=== PATIENT | female | born 1940 | race Caucasian/White ===

== ENCOUNTER → 2016-09-23 | Outpatient (CLI) | payer OTHER | LOC: FIMAGING 15:15 | DX: Z12.31 Encounter for screening mammogram for malignant neoplasm of breast (principal); Z80.3 Family history of malignant neoplasm of breast | CPT/HCPCS: G0202 ==

== ENCOUNTER → 2017-05-10 | Outpatient (CLI) | payer OTHER | LOC: BMCIMAGING 10:18 | PROVIDERS: ATTEND Internal Medicine | DX: Z12.39 Encounter for other screening for malignant neoplasm of breast (principal); N64.59 Other signs and symptoms in breast; Z80.3 Family history of malignant neoplasm of breast | CPT/HCPCS: 76641; G0206 ==

== ENCOUNTER 2017-07-15 14:25 | Emergency (ER) | payer OTHER ==
--- NOTE | 2017-07-15 15:22 | EDPHY ---
H & P Stated Complaint: fever, cough, body aches starting Monday - Personal History Current Tetanus/Diphtheria Vaccine: Yes Current Tetanus Diphtheria and Acellular Pertussis (TDAP): Yes Tetanus Vaccine Date: > 10 years - Medical/Surgical History Hx Asthma: No Hx Chronic Respiratory Disease: No Hx Diabetes: No Hx Cardiac Disease: Yes Hx Renal Disease: No Hx Cirrhosis: No Hx Alcoholism: No Hx HIV/AIDS: No Hx Splenectomy or Spleen Trauma: No Other PMH: HTN, gluacoma - Social History Smoking Status: Never smoked Time Seen by Provider: 07/15/17 15:15 HPI/ROS: CHIEF COMPLAINT: "I want to be checked for the flu " HISTORY OF PRESENT ILLNESS: 76-year-old immunocompetent female with up-to-date influenza vaccination complaining of 2days of flu-like symptoms including sinus congestion, headache, nonproductive cough, myalgias, fever, chills. Contacted her PCP who recommend she come to the ER for flu testing today (Monday). No abdominal pain. No nausea or vomiting. No urinary abnormality. PRIMARY CARE PROVIDER: Dr. Joaquin Bhatia REVIEW OF SYSTEMS: A ten point review of systems was performed and is negative with the exception of the items mentioned in the HPI PAST MEDICAL & SURGICAL HISTORY: Up-to-date with influenza vaccination SOCIAL HISTORY: Nonsmoker PHYSICAL EXAM (Prior to examination, patient consented to physical exam, hands were washed and my usual and customary physical exam procedures followed) 1) GENERAL: Well-developed, well-nourished, alert and oriented. Appears nontoxic. 2) HEAD: Normocephalic, atraumatic 3) HEENT: Pupils equal, round, reactive to light bilaterally. Sclera anicteric. Nasopharynx, oropharynx, clear, no lesions. No tonsillar enlargement or exudate Ears bilaterally with normal tympanic membranes. 4) NECK: Full range of motion, no meningeal signs. 5) LUNGS: Clear auscultation bilaterally, no wheezes, no rhonchi, no retractions. No accessory muscle use 6) HEART: Regular rate and rhythm, no murmur, no heave, no gallop. 7) ABDOMEN: No guarding, no rebound, no focal tenderness, negative McBurney's, negative Canela's, negative Rovsing's, negative peritoneal sign, 8) MUSCULOSKELETAL: Moving all extremities, no focal areas of tenderness, no obvious trauma. No peripheral edema or discoloration. 9) BACK: No CVA tenderness, no midline vertebral tenderness, no fluctuance, no step-off, no obvious trauma, no visual or palpable abnormality. 10) SKIN: No rash, no petechiae. 11) Psychiatric: Patient is oriented X 3, there is no agitation. DIFFERENTIAL DIAGNOSIS: In no particular include but limited to pneumonia, influenza, bronchitis (Ruben,D Yesica) Constitutional: Initial Vital Signs Temperature (C) 37.4 C 07/15/17 14:30 Heart Rate 78 07/15/17 14:30 Respiratory Rate 20 07/15/17 14:30 Blood Pressure 149/61 H 07/15/17 14:30 O2 Sat (%) 93 07/15/17 14:30 O2 Delivery Mode Room Air Allergies/Adverse Reactions: codeine [Codeine] Allergy (Mild, Verified 07/15/17 14:27) Home Medications: Medication Instructions Recorded ASPIRIN 07/15/17 Alphagan 0.2% 07/15/17 LEVOTHYROXINE SODIUM 07/15/17 LORAZEPAM 07/15/17 Lumigan 0.01% (*) 07/15/17 Metoprolol Tartrate 07/15/17 Micardis 07/15/17 Omeprazole 07/15/17 Oseltamivir Phosphate [Tamiflu] 75 mg PO BIDMEAL 5 Days cap 07/15/17 Quetiapine Fumarate 07/15/17 Ranitidine HCl 07/15/17 Medical Decision Making ED Course/Re-evaluation: 3:21 p.m.: Patient would like to be tested for the flu which will be obtained. Care of patient under supervision of secondary supervising physician Dr Gama Tiwari. 3:24 p.m.: Patient had a influenza nasal swab obtained would like to go home, does not want to wait for results, would like to be called with the results. I am sending her home with a prescription for Tamiflu however recommend she wait until test results. Patient's , Pedro Larry, was given Tamiflu prophylactic dosing and also recommended he wait on results. 4:30 p.m.: Patient's influenza testing is negative. Her nurse has contacted the patient regarding this and also regarding her 's prophylactic Tamiflu which is prescribed previously. (Ro Miranda) I did not see this patient while she was in the emergency department. However her care was discussed with the PA while the patient was in the department. I agree with treatment plan and management (Gama Tiwari) - Data Points Laboratory Results: 07/15/17 15:27 Nasal Influenza A PCR NEGATIVE FOR FLU A (NEGATIVE) Nasal Influenza B PCR NEGATIVE FOR FLU B (NEGATIVE) Departure - Departure Disposition: Home, Routine, Self-Care Clinical Impression: Influenza Condition: Good Instructions: Influenza (ED) Referrals: Joaquin Bhatia MD [Primary Care Provider] - As per Instructions Prescriptions: Oseltamivir Phosphate [Tamiflu] 75 mg PO BIDMEAL 5 Days cap
[2017-07-15 15:38] VITALS: BP 143/72; PULSE 72; RESP 18; TEMP 99.1; O2SAT 95
== END 2017-07-15 15:55 | disposition home or self-care (01) ==
DX: J11.1 Influenza due to unidentified influenza virus with other respiratory manifestations (principal); I10 Essential (primary) hypertension; Z79.82 Long term (current) use of aspirin

== ENCOUNTER → 2017-09-26 | Outpatient (CLI) | payer OTHER | LOC: FIMAGING 12:26 | PROVIDERS: ATTEND Internal Medicine | DX: Z12.31 Encounter for screening mammogram for malignant neoplasm of breast (principal); Z80.3 Family history of malignant neoplasm of breast ==

== ENCOUNTER → 2018-10-04 | Outpatient (CLI) | payer OTHER | LOC: FIMAGING 13:54 | PROVIDERS: ATTEND Internal Medicine | DX: Z12.31 Encounter for screening mammogram for malignant neoplasm of breast (principal); Z80.3 Family history of malignant neoplasm of breast ==

== ENCOUNTER 2018-10-15 19:58 | Emergency (ER) | payer OTHER ==
[2018-10-15] MEDS ORDERED: ONDANSETRON 4 MG/2 ML VIAL IVP ONE (20:02)
[2018-10-15] MEDS ORDERED: fentaNYL 100 MCG/2 ML INJ IVP ONE (20:02)
--- NOTE | 2018-10-15 20:29 | EDPHY ---
H & P Stated Complaint: R ankle deformity post fall Source: Patient Exam Limitations: No limitations - Personal History Current Tetanus/Diphtheria Vaccine: Yes Current Tetanus Diphtheria and Acellular Pertussis (TDAP): Yes Tetanus Vaccine Date: > 10 years - Medical/Surgical History Hx Asthma: No Hx Chronic Respiratory Disease: No Hx Diabetes: No Hx Cardiac Disease: No Hx Renal Disease: No Hx Cirrhosis: No Hx Alcoholism: No Hx HIV/AIDS: No Hx Splenectomy or Spleen Trauma: No Other PMH: HTN, gluacoma - Social History Smoking Status: Never smoked Time Seen by Provider: 10/15/18 20:24 HPI/ROS: HPI: This is a 77-year-old female who presents with Chief Complaint: R ankle deformity post fall Location: Right ankle Quality: Deformity, pain Duration: Prior to arrival Signs and Symptoms: No bleeding, no radiation, no numbness, no weakness, no tingling, no incontinence, + decreased range of motion, no swelling, + pain, no fever Timing: Acute Severity: 03/28 Context: Patient reports that tomorrow is her birthday and she was enjoying dinner, glass and half of wine and dancing with her when she lost her balance and fell backwards. She is unsure of how happened but she injured her right ankle. She reports that there is an obvious deformity with decreased range of motion. She was unable to bear weight on her right lower extremity. Denies LOC/head injury/neck pain/dizziness/nausea/vomiting/amnesia. Takes baby aspirin daily. at bedside confirms the story and that patient did not hit her head. Called EMS who gave her IV fentanyl 50 mcg en route. Modifying Factors: Splinted by EMS and given 50 mcg of fentanyl Comment: ROS: A comprehensive 10 system review of systems is otherwise negative aside from elements mentioned in the history of present illness. MEDICAL/SURGICAL/SOCIAL HISTORY: Medical history: Hypertension, hypothyroidism, glaucoma, GERD, anxiety disorder Surgical history: Denies Social history: , retired, nonsmoker. Drinks alcohol socially CONSTITUTIONAL: Slightly intoxicated elderly white female, awake and alert, no obvious distress HEENT: Atraumatic and normocephalic, PERRL, EOMI. Nares patent; no rhinorrhea; no nasal mucosal edema. Tympanic membranes clear. Oropharynx clear, no exudate and moist pink mucosa. Airway patent. No lymphadenopathy. No meningismus. Cardiovascular: Normal S1/S2, regular rate, regular rhythm, without murmur rub or gallop. PULMONARY/CHEST: Symmetrical and nontender. Clear to auscultation bilaterally. Good air movement. No accessory muscle usage. ABDOMEN: Soft, nondistended, nontender, no rebound, no guarding, no peritoneal signs, no masses or organomegaly. No CVAT. EXTREMITIES: 2/2 pedal pulses, strength 5/5, right ankle has obvious deformity with medial deviation; able to wiggle all 5 toes with good light touch sensation. no deformities, no clubbing, no cyanosis or edema. NEUROLOGICAL: no focal neuro deficits. GCS 15. SKIN: Warm and dry, no erythema. no rash. Good capillary refill. (Cristal Mcfadden) Constitutional: Initial Vital Signs Temperature (C) 36.9 C 10/15/18 20:02 Heart Rate 55 L 10/15/18 20:02 Respiratory Rate 16 10/15/18 20:02 Blood Pressure 161/75 H 10/15/18 20:02 O2 Sat (%) 88 L 10/15/18 20:02 O2 Delivery Mode [Post Room Air Procedure 4th] O2 Delivery Mode [Post Nasal Cannula Procedure 3rd] O2 Delivery Mode [Post Nasal Cannula Procedure 2nd] O2 Delivery Mode [Post Nasal Cannula Procedure 1st] O2 Delivery Mode [Procedural Non-Rebreather Mask 2nd] O2 Delivery Mode [Procedural Non-Rebreather Mask 1st] O2 Delivery Mode [.Immediate Room Air Pre-Procedure] O2 Delivery Mode Room Air O2 (L/minute) [Post Procedure 3 3rd] O2 (L/minute) [Post Procedure 2 2nd] O2 (L/minute) [Post Procedure 2 1st] O2 (L/minute) [Procedural 2nd] 10 O2 (L/minute) [Procedural 1st] 10 O2 (L/minute) 2 Allergies/Adverse Reactions: codeine [Codeine] Allergy (Mild, Verified 07/15/17 14:27) Home Medications: Medication Instructions Recorded ASPIRIN 07/15/17 Alphagan 0.2% 07/15/17 LEVOTHYROXINE SODIUM 07/15/17 LORAZEPAM 07/15/17 Lumigan 0.01% (*) 07/15/17 Metoprolol Tartrate 07/15/17 Micardis 07/15/17 Omeprazole 07/15/17 Oseltamivir Phosphate [Tamiflu] 75 mg PO BIDMEAL 5 Days cap 07/15/17 Quetiapine Fumarate 07/15/17 Ranitidine HCl 07/15/17 Ondansetron Odt [Zofran Odt 4 mg 4 mg PO Q4 PRN #12 tab 10/15/18 (*)] oxyCODONE HCL/ACETAMINOPHEN 1 each PO Q4-6PRN PRN #12 tablet 10/15/18 [Oxycodone-Acetaminophen 5-325] traMADol [Ultram 50 mg (*)] 50 mg PO Q4 PRN #10 tab 10/15/18 Medical Decision Making - Diagnostics Imaging Results: Imaging Impressions Ankle X-Ray 10/15/18 20:00 Impression: Displaced and angulated trimalleolar fracture dislocation. Ankle X-Ray 10/15/18 21:05 Impression: Nicely reduced trimalleolar fracture dislocation. Procedures: Procedure: Dislocation reduction. The dislocation of the right ankle was reduced using counter traction technique without complications. Post reduction the patient's neurovascular exam is normal. Post reduction x-ray demonstrates reduction of the joint to the anatomic position. The procedure was performed by myself. Procedure: Splint placement. A [facility] Glass splint was applied. After application of the splint I returned and re-examined the patient. The splint was adequately immobilizing the joint and distal to the splint the patient's circulation and sensation was intact. (Cristal Mcfadden) ED Course/Re-evaluation: Vital signs reviewed and stable upon arrival. Placed on records analysis manager and given IV fentanyl 50 mcg and IV Zofran 4 mg Right ankle x-ray my read shows trimalleolar fracture with deviation. 2024: Spoke with Orthopedics, Dr. Simpson, who agrees with reduction and Cesario splint placement He advised to call his office in the morning for to be seen tomorrow for impending surgery. 2099: Procedure conscious sedation performed by Dr. Luna using propofol 60 mg. Ankle reduced and x-ray at bedside shows Placed in [facility] Glass splint, crutches, Ortho in the a.m. for impending surgery 2154: Passed road test on crutches. Given a Percocet prepack and prescription for same along with Zofran. 2209: Notified by RN that patient requesting tramadol along with Percocet for pain control. She is scared to take the Percocet. No signs of neurovascular compromise/tenting of skin/compartment syndrome/ extremities and joints examined above and below area of concern and are neurovascularly intact. This patient was seen under the supervision of my secondary supervising physician. I evaluated and cared for this patient with attending. (Cristal Mcfadden) Differential Diagnosis: Ankle injury differential diagnosis includes but is not limited to tibia fracture, fibula fracture, metatarsal fracture, LisFranc fracture, achilles tendon rupture, sprain. (Cristal Mcfadden) Other Provider: The patient was evaluated and managed by the Physician Production Assistant. I discussed the patient's presentation and course with the midlevel provider with them and agree with the evaluation. My co-signature indicates that I have reviewed this chart and I agree with the findings and plan of care as documented. I am the secondary supervising physician. Procedure: Conscious sedation. Indication: Ankle fracture reduction The patient is an appropriate candidate to tolerate procedural sedation. Patient's vital signs and mental status are appropriate. The risks, benefits, and alternatives of the sedation were discussed with the patient. The patient is an ASA classification of 2, E. The patient's Mallampati airway score was 2 and the patient did meet the 3-3-2 airway measurements. A time out was completed. The patient was sedated with propofol 60 mg. The patient was monitored with continuous pulse oximetry, furniture finisher and end tidal CO2. There were no complications and no significant hypoxemia. I performed the sedation and assisted with the procedure The total time I spent at the bedside during the procedural sedation was 15 minutes. The patient was examined after the procedural sedation and has returned to their pre-sedation baseline with normal vital signs and a normal examination. ( Beatriz Luna) - Data Points Medications Given: Discontinued Medications Fentanyl (Sublimaze) 50 mcg IVP EDNOW ONE Stop: 10/15/18 20:03 Last Admin: 10/15/18 20:07 Dose: 50 mcg Ondansetron HCl (Zofran) 4 mg IVP EDNOW ONE Stop: 10/15/18 20:03 Last Admin: 10/15/18 22:04 Dose: Not Given Ondansetron HCl (Zofran Odt 4 Mg Prepack#2) 1 btl TAKEHOME EDNOW ONE Stop: 10/15/18 21:56 Last Admin: 10/15/18 22:03 Dose: 1 btl Oxycodone/Acetaminophen (Percocet 5/325mg Prepack#4) 1 btl TAKEHOME EDNOW ONE Stop: 10/15/18 21:54 Last Admin: 10/15/18 22:02 Dose: 1 btl Propofol (Diprivan) 60 mg IVP EDNOW ONE Stop: 10/15/18 20:56 Last Admin: 10/15/18 20:55 Dose: 60 mg Propofol (Diprivan) 60 mg IVP EDNOW ONE Stop: 10/15/18 20:45 Last Admin: 10/15/18 21:10 Dose: Not Given Departure - Departure Disposition: Home, Routine, Self-Care Clinical Impression: Closed right trimalleolar fracture Qualifiers: Encounter type: initial encounter Qualified Code(s): S82.851A - Displaced trimalleolar fracture of right lower leg, initial encounter for closed fracture Closed fracture dislocation of right ankle Qualifiers: Encounter type: initial encounter Qualified Code(s): S82.891A - Other fracture of right lower leg, initial encounter for closed fracture Condition: Good Instructions: Oxycodone/Acetaminophen (By mouth), Ondansetron (By mouth), Ankle Fracture (ED), Crutch Instructions (ED), ORIF of an Ankle Fracture (DC), Splint Care (ED), Ankle Dislocation (ED) Additional Instructions: Keep the splint dry and in place until seen by Orthopedics. Use crutches to aid ambulation. Start with toe-touch weight-bearing status. Take Tylenol 650 mg every 4 hours and/or Ibuprofen 600 mg every 8 hours with food as needed for pain. Apply ice for 30 minutes at a time; 2-3 times per day for the next 1-2 days. Call Orthopedics office tomorrow at 9:00 a.m. for your appointment time tomorrow as you will require surgery. Follow-Up: Please follow-up as noted above. Follow-up sooner if your condition worsens or if you develop any new problems. Call as soon as possible for an appointment. Be clear when you call for an appointment that this is an Emergency Department follow-up. Contact the Emergency Department if you have trouble arranging follow-up care. Our referrals are not based on your insurance network. When time allows, contact your insurance carrier to verify the referral physician is in your plan. If not, get a referral for an in-dish network installer. Referrals: Patient,NotPresent [Unknown] - As per Instructions Nicholas Simpson MD [Medical Doctor] - As per Instructions Prescriptions: Ondansetron Odt [Zofran Odt 4 mg (*)] 4 mg PO Q4 PRN #12 tab PRN Reason: Nausea/Vomiting, Use 1st oxyCODONE HCL/ACETAMINOPHEN [Oxycodone-Acetaminophen 5-325] 1 each PO Q4-6PRN PRN #12 tablet PRN Reason: Pain, Moderate traMADol [Ultram 50 mg (*)] 50 mg PO Q4 PRN #10 tab PRN Reason: Pain, Moderate
[2018-10-15] MEDS ORDERED: PROPOFOL 200 MG/20 ML VIAL ONE (20:41)
[2018-10-15] MEDS ORDERED: PROPOFOL 200 MG/20 ML VIAL IVP ONE ×2 (20:44→20:55)
[2018-10-15] MEDS ORDERED: OXYCODONE/APAP 5/325MG PREPACK#4 BTL TAKEHOME ONE (21:53)
[2018-10-15] MEDS ORDERED: ONDANSETRON 4MG PREPACK#2 BTL TAKEHOME ONE (21:55)
[2018-10-15 22:23] VITALS: BP 129/76
== END 2018-10-15 22:23 | disposition home or self-care (01) ==
LOC: EDUNIT#
PROC: 0QSGXZZ Reposition Right Tibia, External Approach (ICD-10-PCS; principal; 2018-10-15)
DX: S82.851A Displaced trimalleolar fracture of right lower leg, initial encounter for closed fracture (principal); I10 Essential (primary) hypertension; W01.0XXA Fall on same level from slipping, tripping and stumbling without subsequent striking against object, initial encounter; Y93.41 Activity, dancing; Y92.511 Restaurant or cafe as the place of occurrence of the external cause
CPT/HCPCS: 27818; 73610; 96374; 96375; 99152; 99285; J2405; J2704; J3010